=== PATIENT | female | born 1985 | race Hispanic/Latino ===

== ENCOUNTER 2017-12-17 23:06 | Observation (INO) | payer MEDICAID ==
[~2017-12-17] VITALS: Ht 149.9 cm; Wt 87.1 kg
[2017-12-17 23:37] LABS: APPEARANCE,URINE Clear (CLEAR); BILIRUBIN,URINE Negative (NEGATIVE); COLOR,URINE Yellow (YELLOW); GLUCOSE, URINE (UA) Negative (NEGATIVE); KETONES,URINE Negative (NEGATIVE); LEUKOCYTE ESTERASE ,URINE Negative (NEGATIVE); NITRATE,URINE Negative (NEGATIVE); OCCULT BLOOD,URINE Moderate (NEGATIVE); PROTEIN,URINE POS 1+ (NEGATIVE)
[2017-12-17 23:48] LABS: AMORPHOUS SEDIMENT,UR Moderate /LPF (None Seen); BACTERIA,URINE Moderate /HPF (None Seen); MUCUS,URINE Many LPF (None Seen); SQUAMOUS EPITHELIAL CELL,UR Many /HPF (0-2)
[2017-12-18] MEDS ORDERED: LACTATED RINGERS 1000ML 1,000 ML IV PRN (00:02)
[2017-12-18] MEDS ORDERED: LACTATED RINGERS 1000ML 1,000 ML IV ONE (00:21)
[2017-12-18 00:26] LABS: HEMATOCRIT 32.4 % (36-48); MEAN CORPUSCULAR HEMOGLOBIN 31.3 pg (27.0-33.0); MEAN CORPUSCULAR HGB CONC 34.6 g/dL (32.0-36.0); MEAN CORPUSCULAR VOLUME 90.6 fL (79-99); PLATELET COUNT (AUTO) 153 K/uL (130-400); RED BLOOD CELL COUNT(AUTO) 3.57 MIL/uL (4.00-5.50); RED CELL DISTRIBUTION WIDTH 14.7 % (11.0-15.5); WHITE BLOOD COUNT (AUTO) 9.9 K/uL (4.8-10.8)
[2017-12-18 06:40] LABS: RAPID PLASMA REAGIN NONREACTIVE (NONREACTIVE)
[2017-12-19 08:02] LABS: HEPATITIS Bs ANTIGEN SCREEN P Negative (Negative)
== END 2017-12-18 08:05 | disposition home or self-care (01) ==
LOC: EDH 23:06 → LDH 23:17 → OBSVTOIN 12-18 00:03 → INTOOBSV 12-18 00:03
PROVIDERS: ADMIT Obstetrics & Gynecology; ATTEND Obstetrics & Gynecology
DX: O36.8130 Decreased fetal movements, third trimester, not applicable or unspecified (principal); O75.82 Onset (spontaneous) of labor after 37 completed weeks of gestation but before 39 completed weeks gestation, with delivery by (planned) cesarean section; O26.893 Other specified pregnancy related conditions, third trimester; R10.9 Unspecified abdominal pain; Z3A.39 39 weeks gestation of pregnancy
CPT/HCPCS: 36415; 76819; 81001; 85027; 86592; 86701; 86850; 86900; 86901; 87340; 87390; 99285; G0378 ×9; J7120; 96360; 96361

== ENCOUNTER 2017-12-24 23:10 | Inpatient (IN) | payer MEDICAID ==
[~2017-12-24] VITALS: Ht 149.9 cm; Wt 87.5 kg
[2017-12-24] MEDS ORDERED: LACTATED RINGERS 1000ML 1,000 ML IV PRN (23:56)
[2017-12-24 23:57] LABS: APPEARANCE,URINE Clear (CLEAR); BILIRUBIN,URINE Negative (NEGATIVE); COLOR,URINE Dark Yellow (YELLOW); GLUCOSE, URINE (UA) Negative (NEGATIVE); KETONES,URINE Trace mg/dL (NEGATIVE); LEUKOCYTE ESTERASE ,URINE Negative (NEGATIVE); NITRATE,URINE Negative (NEGATIVE); OCCULT BLOOD,URINE Moderate (NEGATIVE); PROTEIN,URINE POS 1+ (NEGATIVE)
[2017-12-25 00:08] LABS: BACTERIA,URINE Many /HPF (None Seen); MUCUS,URINE Few LPF (None Seen); WBC,URINE 0-1 /HPF (0-1)
[2017-12-25] MEDS ORDERED: AMPICILLIN 2GM+NS 100ML 100 ML IV SCH (00:15)
[2017-12-25 01:33] LABS: HEMATOCRIT 33.1 % (36-48); MEAN CORPUSCULAR HEMOGLOBIN 32.4 pg (27.0-33.0); MEAN CORPUSCULAR HGB CONC 35.3 g/dL (32.0-36.0); MEAN CORPUSCULAR VOLUME 91.7 fL (79-99); NUCLEATED RED BLOOD CELLS 0.1 % (0.0-0.19); PLATELET COUNT (AUTO) 174 K/uL (130-400); RED BLOOD CELL COUNT(AUTO) 3.61 MIL/uL (4.00-5.50); WHITE BLOOD COUNT (AUTO) 8.7 K/uL (4.8-10.8)
[2017-12-25] MEDS ORDERED: LACTATED RINGERS 1000ML 1,000 ML IV ONE ×2 (02:56→13:03)
[2017-12-25] MEDS: OXYTOCIN 10 USP UNITS/ML 20 UNIT in LACTATED RINGERS 1000ML 1,000 ML IV SCH ×2 (03:32→13:08)
[2017-12-25] MEDS: AMPICILLIN 1GM+NS 50ML 50 ML IV SCH ×2 (05:39→20:15)
[2017-12-25] MEDS ORDERED: BUTORPHANOL TARTRATE 2 MG/ML IVP PRN (08:00)
[2017-12-25] MEDS ORDERED: LACTATED RINGERS 500 ML 500 ML IV PRN (09:00)
[2017-12-25] MEDS ORDERED: NALOXONE HCL 0.4 MG/1 ML ML IV PRN (09:00)
[2017-12-25] MEDS ORDERED: EPHEDRINE SULFATE 50 MG/ML AMPULE IVP PRN (09:00)
[2017-12-25] MEDS ORDERED: OXYTOCIN-LR 20 UNITS/1000 ML 1,000 ML IV SCH (12:00)
[2017-12-25] MEDS ORDERED: ACETAMINOPHEN-CODEINE 300/30MG TAB PO PRN (12:00)
[2017-12-25] MEDS ORDERED: BENZOCAINE/LANOLIN/ALOE VERA 60 ML AEROSOL TP PRN (12:00)
[2017-12-25] MEDS ORDERED: WITCH HAZEL 1 PAD TP PRN (12:00)
[2017-12-25] MEDS ORDERED: LANOLIN 30GM OINTMENT TP PRN (12:00)
[2017-12-25] MEDS ORDERED: OXYTOCIN 10 USP UNITS/ML ONE (13:04)
[2017-12-25 13:05] VITALS: BP 121/69
[2017-12-25] MEDS: IBUPROFEN 600 MG TABLET PO PRN (14:46)
[2017-12-25 15:50] VITALS: BP 106/66
[2017-12-25] MEDS ORDERED: DIPH,PERTUSS(ACELL),TET VAC/PF 0.5 ML VIAL IM SCH (16:45)
[2017-12-25 19:45] VITALS: BP 111/76
[2017-12-25] MEDS: DOCUSATE SODIUM 100 MG CAP PO SCH (21:21)
[2017-12-25 23:33] VITALS: BP 111/62
[2017-12-26] MEDS: AMPICILLIN 1GM+NS 50ML 50 ML IV SCH ×2 (00:15→04:15)
[2017-12-26 03:09] VITALS: BP 110/79
[2017-12-26] MEDS: IBUPROFEN 600 MG TABLET PO PRN ×2 (04:38→17:27)
[2017-12-26 07:03] LABS: MEAN CORPUSCULAR HEMOGLOBIN 31.1 pg (27.0-33.0); MEAN CORPUSCULAR VOLUME 91.5 fL (79-99); PLATELET COUNT (AUTO) 145 K/uL (130-400); RED BLOOD CELL COUNT(AUTO) 3.49 MIL/uL (4.00-5.50); RED CELL DISTRIBUTION WIDTH 14.9 % (11.0-15.5); WHITE BLOOD COUNT (AUTO) 10.8 K/uL (4.8-10.8)
[2017-12-26 07:32] LABS: HEPATITIS Bs ANTIGEN SCREEN P Negative (Negative)
[2017-12-26 08:10] VITALS: BP 111/68
[2017-12-26] MEDS: DOCUSATE SODIUM 100 MG CAP PO SCH (08:39)
[2017-12-26 12:10] VITALS: BP 118/69
[2017-12-26 15:55] VITALS: BP 130/70
== END 2017-12-26 17:40 | disposition home or self-care (01) | DRG 560 ==
LOC: EDH 23:10 → LDH 23:14 → OBSVTOIN 23:14 → WSH 12-25 13:05
PROVIDERS: ADMIT Obstetrics & Gynecology; ATTEND Obstetrics & Gynecology
PROC: 10E0XZZ Delivery of Products of Conception, External Approach (ICD-10-PCS; principal; 2017-12-25)
PROC: 3E033VJ Introduction of Other Hormone into Peripheral Vein, Percutaneous Approach (ICD-10-PCS; 2017-12-25)
PROC: 3E0R3BZ Introduction of Anesthetic Agent into Spinal Canal, Percutaneous Approach (ICD-10-PCS; 2017-12-25)
PROC: 00HU33Z Insertion of Infusion Device into Spinal Canal, Percutaneous Approach (ICD-10-PCS; 2017-12-25)
PROC: 3E0234Z Introduction of Serum, Toxoid and Vaccine into Muscle, Percutaneous Approach (ICD-10-PCS; 2017-12-25)
DX: O80 Encounter for full-term uncomplicated delivery (principal); Z23 Encounter for immunization; Z37.0 Single live birth; Z3A.39 39 weeks gestation of pregnancy
CPT/HCPCS: 36415; 81001; 85027; 86592; 86850; 86900; 86901; 87340; 90715; A4314; A4606; J0290; J0595; J2590; J7120